=== PATIENT | female | born 1965 | race Two or more races ===

== ENCOUNTER 2016-12-12 20:01 | Emergency (ER) | payer SELFPAY ==
[2016-12-12 20:12] VITALS: BP 127/80; PULSE 83; RESP 18; TEMP 98.1; O2SAT 94
[2016-12-12] MEDS ORDERED: PROPARACAINE 0.5% 15 ML OPHT DROP LEFTEYE ONE (20:15)
--- NOTE | 2016-12-12 20:49 | UCPHY ---
H & P Time Seen by Provider: 12/12/16 20:41 Patient Type: New HPI/ROS: This patient comes in with a red left eye. Symptoms started abruptly today and she thinks it may have occurred with coughing. She has no other ocular symptoms. This in the left lateral eye. She has a cough that she attributes to smoking with no recent change. No change in the redness the eye since it started earlier in the day. ROS: No visual change. No right eye symptoms. No lids or lash complaints no fevers. No shortness of breath. 7 point ROS is otherwise negative. Past Medical/Surgical History: Otherwise healthy Smoking Status: Current every day smoker Physical Exam: Physical Exam Vital signs are normal. General: No acute distress HEENT: Nose: Clear bilaterally. Eyes: Pupils equal and react to light. Extraocular motions are intact. There is subconjunctival hemorrhage to the left lateral eye. No hyphema. Lids and lashes normal. Right eye normal Lungs: Clear to auscultation. Appreciate no rales. No rhonchi. Cardiac: Regular rate and rhythm with no murmur gallop or rub Skin: No rash or pallor. Neuro: Alert Constitutional: Initial Vital Signs Temperature (C) 36.7 C 12/12/16 20:08 Heart Rate 83 12/12/16 20:08 Respiratory Rate 18 12/12/16 20:08 Blood Pressure 127/80 H 12/12/16 20:08 O2 Sat (%) 94 12/12/16 20:08 O2 Delivery Mode Room Air Allergies/Adverse Reactions: No Known Allergies Allergy (Unverified 12/12/16 20:08) Home Medications: Medication Instructions Recorded NK [No Known Home Meds] 12/12/16 Medical Decision Making - Data Points Medications Given: Discontinued Medications Proparacaine HCl (Alcaine 0.5%) 1 drops LEFTEYE ONCE ONE Stop: 12/12/16 20:16 Last Admin: 12/12/16 20:17 Dose: Not Given Departure - Departure Disposition: Home, Routine, Self-Care Clinical Impression: Subconjunctival hemorrhage of left eye, Smokers' cough Condition: Good Instructions: How to Stop Smoking (ED), Subconjunctival Hemorrhage (ED) Additional Instructions: Diagnosis: 1. Smoker's cough 2. Subconjunctival hemorrhage Plan: Quit smoking Your eye redness will gradually resolve over the next 7-14 days. Return if you develops fevers, shortness of breath or other concerns. Referrals: NONE *PRIMARY CARE P,. [Primary Care Provider] - As per Instructions - PQRS PQRS Measurement: NA
== END 2016-12-12 21:08 | disposition home or self-care (01) ==
LOC: CED 20:01
DX: H11.32 Conjunctival hemorrhage, left eye (principal); R05 Cough; F17.200 Nicotine dependence, unspecified, uncomplicated
CPT/HCPCS: G0463-PO